=== PATIENT | female | born 1940 | race Caucasian/White ===

== ENCOUNTER 2024-08-19 08:24 | Inpatient (IN) | payer MEDICARE, OTHER ==
[~2024-08-19] VITALS: Ht 167.6 cm; Wt 63.5 kg
[2024-08-19 09:00] LABS: COVID AG,FIA SOURCE NASAL SWAB
[2024-08-19 09:16] LABS: BASOPHILS % (AUTO) 0.6 % (0.0-2.0); EOSINOPHILS % (AUTO) 0.5 % (1.0-6.0); HEMATOCRIT 46.3 % (36-46); HEMOGLOBIN 15.2 g/dL (12.0-16.0); LYMPHOCYTES # (AUTO) 1.2 K/uL (1.0-4.8); MEAN CORPUSCULAR HGB CONC 32.8 G/dL (31.0-37.0); MEAN CORPUSCULAR VOLUME 97 fL (80-100); MONOCYTES # (AUTO) 0.3 K/uL (0.1-1.0); MONOCYTES % (AUTO) 3.2 % (2.0-9.0); NEUTROPHILS # (AUTO) 7.6 K/uL (1.8-7.7); NEUTROPHILS % (AUTO) 82.7 % (40.0-70.0); PLATELET COUNT (AUTO) 242 K/uL (150-450); RED BLOOD CELL COUNT(AUTO) 4.76 MIL/uL (4.00-5.20); RED CELL DISTRIBUTION WIDTH 14.2 % (11.5-14.5); WHITE BLOOD COUNT (AUTO) 9.2 K/uL (4.5-11.0)
[2024-08-19 09:22] LABS: ANION GAP 6 mmol/L (8-16); CALCIUM, TOTAL 9.9 mg/dL (8.8-10.5); CARBON DIOXIDE 31 mmol/L (22-29); CHLORIDE 103 mmol/L (98-107); CREATININE 0.85 mg/dL (0.60-1.30); GLOMERULAR FILTR. RATE CALC > 60 mL/min (>60); GLUCOSE,RANDOM 156 mg/dL (70-110); POTASSIUM 3.8 mmol/L (3.5-5.1); SODIUM SERUM 140 mmol/L (136-145); UREA NITROGEN, BLOOD 18 mg/dL (7-18)
[2024-08-19 09:41] LABS: SARS-COV2 (COVID) ANTIGEN,FIA Negative (Negative)
[2024-08-19 09:46] LABS: ALCOHOL, BLOOD (SERUM) < 3 mg/dL (0-10)
[2024-08-19 10:31] LABS: APPEARANCE,URINE CLEAR (CLEAR); BILIRUBIN,URINE NEGATIVE (NEGATIVE); COLOR,URINE YELLOW (YELLOW); GLUCOSE, URINE (UA) NEGATIVE (NEGATIVE); KETONES,URINE NEGATIVE (NEGATIVE); LEUKOCYTE ESTERASE ,URINE MODERATE (NEGATIVE); NITRATE,URINE NEGATIVE (NEGATIVE); OCCULT BLOOD,URINE SMALL (NEGATIVE); PH,URINE 5.5 (5.0-8.0); PH,URINE DRUG SCREEN 5.5 (5.0-8.0); PROTEIN,URINE TRACE mg/dL (NEGATIVE); SPECIFIC GRAVITIY, URINE 1.022 (1.003-1.030); UROBILINOGEN,URINE <=1.0 mg/dL (<=1.0)
[2024-08-19 10:45] LABS: ALCOHOL, URINE DRUG SCREEN NEGATIVE (NEGATIVE); AMPHET/METH SCREEN,URINE NEGATIVE (NEGATIVE); BARBITURATE SCREEN, URINE NEGATIVE (NEGATIVE); BENZODIAZEPINES SCREEN,URINE NEGATIVE (NEGATIVE); CANNABINOID SCREEN,URINE NEGATIVE (NEGATIVE); COCAINE SCREEN,URINE NEGATIVE (NEGATIVE); METHADONE SCREEN, URINE NEGATIVE (NEGATIVE); OPIATE SCREEN,URINE NEGATIVE (NEGATIVE); PHENCYCLIDINE SCREEN,URINE NEGATIVE (NEGATIVE); RBC,URINE None Seen /HPF (0-2)
[2024-08-19 10:46] LABS: BACTERIA,URINE None Seen /HPF (None Seen); SQUAMOUS EPITHELIAL CELL,UR Few /LPF (None Seen)
[2024-08-19] MEDS ORDERED: LORazepam 2 MG TABLET PO PRN (11:00)
[2024-08-19] MEDS ORDERED: haloperidoL 5 MG TABLET PO PRN (11:00)
[2024-08-19] MEDS ORDERED: ZOLPIDEM TARTRATE 10 MG TABLET PO PRN (11:00)
[2024-08-19 18:10] VITALS: BP 143/77; PULSE 83; RESP 18; TEMP 97.9; O2SAT 96
[2024-08-19 20:54] VITALS: BP 141/69; PULSE 75; RESP 18; TEMP 98.6; O2SAT 98
[2024-08-19] MEDS ORDERED: LORazepam 1 MG TABLET PO PRN (21:28)
[2024-08-19] MEDS: ZOLPIDEM TARTRATE 5 MG TABLET PO PRN (21:30)
[2024-08-20 08:00] VITALS: BP 148/80; PULSE 72; RESP 18; TEMP 98.8; O2SAT 98
[2024-08-20] MEDS ORDERED: MAGNESIUM HYDROXIDE SUSPENSION 30 ML UDCUP PO PRN (14:00)
[2024-08-20] MEDS ORDERED: LOPERAMIDE HCL 2 MG CAPSULE PO PRN (14:00)
[2024-08-20] MEDS ORDERED: ACETAMINOPHEN 325 MG TABLET PO PRN (14:00)
[2024-08-20] MEDS ORDERED: DOCUSATE SODIUM 100 MG CAPSULE PO PRN (14:00)
[2024-08-20] MEDS ORDERED: ONDANSETRON 4 MG TABLET PO PRN (14:00)
[2024-08-20] MEDS ORDERED: CloNIDine HCL 0.1 MG TABLET PO PRN (14:00)
[2024-08-20] MEDS ORDERED: OMEPRAZOLE 20 MG CAPSULE PO PRN (14:00)
[2024-08-20] MEDS ORDERED: ALBUTEROL SULFATE HFA 90 MCG/PUFF 8 GM INHALER IH PRN (14:00)
[2024-08-20] MEDS ORDERED: PETROLATUM,WHITE 28 GM JELLY TP PRN (14:00)
[2024-08-20] MEDS ORDERED: BACITRACIN 28 GM OINTMENT TP PRN (14:00)
[2024-08-20 20:55] VITALS: BP 151/79; PULSE 79; RESP 18; TEMP 98.8; O2SAT 96
[2024-08-20] MEDS: IBUPROFEN 600 MG TABLET PO PRN (20:58)
[2024-08-21 08:00] VITALS: BP 171/93; PULSE 83; RESP 16; TEMP 98.1; O2SAT 97
[2024-08-21 08:06] VITALS: BP 171/93; PULSE 83; RESP 16; TEMP 98.1; O2SAT 97
[2024-08-21] MEDS: MAG HYDROX/ALUMINUM HYD/SIMETH ES 30 ML SUSPENSION UDCUP PO PRN (18:21)
[2024-08-21 20:07] VITALS: BP 150/88; PULSE 75; RESP 18; TEMP 98.7; O2SAT 98
[2024-08-21 20:08] VITALS: BP 150/88; PULSE 75; RESP 18; TEMP 98.7; O2SAT 98
[2024-08-22 09:02] VITALS: BP 140/71; PULSE 85; RESP 18; TEMP 97.3; O2SAT 96
[2024-08-22 16:20] VITALS: BP 127/71; PULSE 85; RESP 18; TEMP 97.3; O2SAT 97
[2024-08-22 19:30] VITALS: BP 126/68; PULSE 87; RESP 17; TEMP 98.3; O2SAT 98
[2024-08-22 20:03] VITALS: BP 106/69; PULSE 69; RESP 16; TEMP 97.5; O2SAT 95
[2024-08-22 20:27] VITALS: RESP 18
[2024-08-23 08:44] VITALS: BP 138/68; PULSE 81; RESP 16; TEMP 97.2; O2SAT 97
[2024-08-23 20:36] VITALS: BP 162/79; PULSE 81; RESP 18; TEMP 98; O2SAT 98
[2024-08-23 21:33] VITALS: BP 124/74; PULSE 97; RESP 18; TEMP 98; O2SAT 98
[2024-08-23 21:34] VITALS: RESP 18
[2024-08-24 08:17] VITALS: BP 123/71; PULSE 94; RESP 17; TEMP 98.4; O2SAT 97
[2024-08-24 21:03] VITALS: BP 121/56; PULSE 75; RESP 18; TEMP 98.1; O2SAT 95
[2024-08-25 02:52] VITALS: BP 164/95; PULSE 84; RESP 18; TEMP 97.8; O2SAT 96
[2024-08-25 03:52] VITALS: RESP 16
[2024-08-25 08:37] VITALS: BP 136/59; PULSE 78; RESP 16; TEMP 97.8; O2SAT 95
[2024-08-25 11:54] VITALS: RESP 17; O2SAT 98
[2024-08-25 12:54] VITALS: RESP 17; O2SAT 98
[2024-08-26] MEDS: PARoxetine HCL 20 MG TABLET PO SCH (08:55)
[2024-08-26 11:30] VITALS: BP 133/85; PULSE 80; RESP 16; TEMP 97.4; O2SAT 99
[2024-08-26] MEDS ORDERED: PARoxetine HCL 10 MG TABLET PO SCH (14:15)
[2024-08-26 20:40] VITALS: BP 133/87; PULSE 85; RESP 16; TEMP 97.3; O2SAT 96
[2024-08-26] MEDS ORDERED: OLANZapine 5 MG TABLET PO SCH (21:00)
[2024-08-26] MEDS ORDERED: OLANZapine 2.5 MG TABLET PO SCH (21:00)
[2024-08-27] MEDS: PARoxetine HCL 10 MG TABLET PO SCH (08:21)
[2024-08-27 09:35] VITALS: BP 131/86; PULSE 79; RESP 16; TEMP 97.1; O2SAT 96
[2024-08-27 20:16] VITALS: BP 138/71; PULSE 68; RESP 16; TEMP 98; O2SAT 100
[2024-08-27] MEDS: OLANZapine 5 MG TABLET PO SCH (20:41)
[2024-08-28 10:44] VITALS: BP 105/54; PULSE 70; RESP 16; TEMP 97.4; O2SAT 96
[2024-08-28 20:10] VITALS: BP 130/66; PULSE 80; RESP 16; TEMP 98.4; O2SAT 96
[2024-08-29 11:14] VITALS: BP 104/54; PULSE 60; RESP 17; TEMP 98; O2SAT 96
[2024-08-29 20:31] VITALS: BP 145/75; PULSE 61; RESP 16; TEMP 98.1; O2SAT 96
[2024-08-30 08:16] VITALS: BP 138/75; PULSE 71; RESP 17; TEMP 97.7; O2SAT 96
[2024-08-30 20:09] VITALS: BP 137/72; PULSE 81; RESP 18; TEMP 98; O2SAT 95
[2024-08-31 10:48] LABS: APPEARANCE,URINE HAZY (CLEAR); BILIRUBIN,URINE NEGATIVE (NEGATIVE); COLOR,URINE LIGHT YELLOW (YELLOW); GLUCOSE, URINE (UA) NEGATIVE (NEGATIVE); KETONES,URINE NEGATIVE (NEGATIVE); LEUKOCYTE ESTERASE ,URINE LARGE (NEGATIVE); NITRATE,URINE NEGATIVE (NEGATIVE); OCCULT BLOOD,URINE TRACE (NEGATIVE); PH,URINE 5.5 (5.0-8.0); PROTEIN,URINE NEGATIVE (NEGATIVE); SPECIFIC GRAVITIY, URINE 1.024 (1.003-1.030); UROBILINOGEN,URINE <=1.0 mg/dL (<=1.0)
[2024-08-31 10:57] LABS: RBC,URINE 0-2 /HPF (0-2)
[2024-08-31 10:59] LABS: BACTERIA,URINE Many /HPF (None Seen); SQUAMOUS EPITHELIAL CELL,UR Rare /LPF (None Seen); WBC,URINE 26-50 /HPF (0-5)
[2024-08-31 14:09] VITALS: BP 119/60; PULSE 66; RESP 16; TEMP 98.4; O2SAT 95
[2024-08-31 20:15] VITALS: BP 151/94; PULSE 78; RESP 16; TEMP 98; O2SAT 95
[2024-08-31] MEDS: OLANZapine 5 MG TABLET PO SCH (20:36)
[2024-09-01 08:07] VITALS: BP 146/69; PULSE 67; RESP 18; TEMP 96; O2SAT 97
[2024-09-01] MEDS: cefuroxime axetiL 250 MG TABLET PO SCH (09:00)
[2024-09-01 20:21] VITALS: BP 149/107; PULSE 78; RESP 16; TEMP 97.9; O2SAT 96
[2024-09-02 09:02] VITALS: BP 115/57; PULSE 72; RESP 16; TEMP 98.1; O2SAT 95
[2024-09-02 20:22] VITALS: BP 119/65; PULSE 68; RESP 17; TEMP 98
[2024-09-03 10:22] VITALS: BP 120/74; PULSE 82; RESP 18; TEMP 97; O2SAT 98
[2024-09-03 20:23] VITALS: BP 157/90; PULSE 74; RESP 17; TEMP 98.1; O2SAT 97
[2024-09-04 18:55] VITALS: RESP 18
[2024-09-04 20:13] VITALS: BP 108/63; PULSE 68; RESP 16; TEMP 98.2; O2SAT 99
[2024-09-05 15:18] VITALS: BP 118/65; PULSE 77; RESP 16; TEMP 97.9; O2SAT 96
[2024-09-05 20:50] VITALS: BP 155/83; PULSE 76; RESP 18; TEMP 98.2; O2SAT 97
[2024-09-06 09:27] VITALS: BP 122/58; PULSE 67; RESP 13; TEMP 98.3; O2SAT 95
[2024-09-06 20:16] VITALS: BP 148/85; PULSE 78; RESP 16; TEMP 98.2; O2SAT 94
[2024-09-07 08:49] VITALS: BP 126/76; PULSE 73; RESP 17; TEMP 98; O2SAT 96
[2024-09-07 20:32] VITALS: BP 130/74; PULSE 74; RESP 16; TEMP 98.4; O2SAT 98
[2024-09-08] MEDS: BENZOCAINE/MENTHOL [CEPACOL] LOZENGE PO PRN (06:54)
[2024-09-08 09:22] VITALS: BP 137/69; PULSE 76; RESP 17; TEMP 98.2; O2SAT 97
[2024-09-08 20:00] VITALS: BP 150/80; PULSE 80; RESP 17; TEMP 98.2; O2SAT 96
[2024-09-09 03:12] VITALS: BP 118/62; PULSE 76; RESP 18; TEMP 97.5; O2SAT 98
[2024-09-09 08:28] VITALS: BP 139/70; PULSE 76; RESP 17; TEMP 98; O2SAT 95
[2024-09-09 16:00] VITALS: BP 132/62; PULSE 101; RESP 17; TEMP 98.2; O2SAT 96
[2024-09-09 17:00] VITALS: RESP 18; O2SAT 97
[2024-09-09 20:00] VITALS: BP 131/69; PULSE 60; RESP 16; TEMP 98.3; O2SAT 96
[2024-09-10 08:58] VITALS: BP 100/50; PULSE 72; RESP 17; TEMP 99.1; O2SAT 95
[2024-09-10 09:18] VITALS: BP 131/65
[2024-09-10 21:03] VITALS: BP 141/77; PULSE 87; RESP 16; TEMP 98.3; O2SAT 99
[2024-09-11 09:09] VITALS: BP 128/77; PULSE 75; RESP 16; TEMP 98.2; O2SAT 95
[2024-09-11] MEDS: ETHYL ALCOHOL 62% ANTISEPTIC NASAL SANITIZER 0.6 ML AMPUL NASAL SCH (10:31)
[2024-09-11 20:28] VITALS: BP 138/85; PULSE 91; RESP 17; TEMP 98; O2SAT 99
[2024-09-11] MEDS: OLANZapine 10 MG TABLET PO SCH (20:33)
[2024-09-11 20:53] VITALS: BP 137/86; PULSE 76; RESP 18; TEMP 97.9; O2SAT 98
[2024-09-11] MEDS: CHLORHEXIDINE GLUCONATE 2% TOWELETTE [2'S/6'S] TP SCH (21:44)
[2024-09-12 09:20] VITALS: BP 138/61; PULSE 68; RESP 16; TEMP 98.2; O2SAT 97
[2024-09-12 20:25] VITALS: BP 177/115; PULSE 88; RESP 18; TEMP 99; O2SAT 95
[2024-09-12 20:58] VITALS: BP 133/85; PULSE 82; RESP 18; TEMP 98.3; O2SAT 96
[2024-09-13 08:23] VITALS: BP 144/60; PULSE 87; RESP 18; TEMP 98.5; O2SAT 95
[2024-09-13 16:31] VITALS: BP 146/84; PULSE 89; RESP 18
[2024-09-13 17:36] VITALS: RESP 18
[2024-09-13 20:33] VITALS: BP 136/82; PULSE 82; RESP 18; TEMP 98; O2SAT 96
[2024-09-14 08:29] VITALS: BP 134/71; PULSE 88; RESP 19; TEMP 97.9; O2SAT 96
== END 2024-09-14 20:00 | disposition short-term general hospital (02) | DRG 885 ==
LOC: EMS 08:42 → B2X 13:24 → EMS 14:00 → B2X 08-22 20:59
PROVIDERS: ADMIT Psychiatry & Neurology Psychiatry; ATTEND Psychiatry & Neurology Psychiatry
PROC: GZ52ZZZ Individual Psychotherapy, Cognitive (ICD-10-PCS; principal; 2024-08-20)
DX: F20.9 Schizophrenia, unspecified (principal); R45.851 Suicidal ideations; F32.9 Major depressive disorder, single episode, unspecified; F41.9 Anxiety disorder, unspecified; G47.00 Insomnia, unspecified; I10 Essential (primary) hypertension; K21.9 Gastro-esophageal reflux disease without esophagitis; Z20.822 Contact with and (suspected) exposure to COVID-19; Z79.899 Other long term (current) drug therapy
CPT/HCPCS: 80048; 80307; 81001; 83036; 85025; 87077; 87081; 87086; 87186; 99285; G0480